=== PATIENT | male | born 1955 | race Caucasian/White ===

== ENCOUNTER → 2018-06-22 | Outpatient (CLI) | payer BC ==
[2018-06-22 12:30] LABS: HEMATOCRIT 42.3 % (42.0-52.0); HEMOGLOBIN 14.9 g/dL (13.5-18.0); RED BLOOD COUNT 4.81 M/mm3 (4.20-5.60); RED CELL DISTRIBUTION WIDTH 14.1 % (11.5-14.5); WHITE BLOOD COUNT 8.2 K/mm3 (4.8-10.8)
== END ==
LOC: LAB 12:10 → EDSTATUS 12:45
PROVIDERS: Internal Medicine Gastroenterology
DX: E83.119 Hemochromatosis, unspecified (principal)

== ENCOUNTER → 2019-02-06 | Outpatient (CLI) | payer BC ==
[2019-02-06 10:21] LABS: HEMATOCRIT 41.9 % (42.0-52.0); HEMOGLOBIN 14.8 g/dL (13.5-18.0)
== END ==
LOC: LAB 10:10
PROVIDERS: Family Medicine
DX: E83.110 Hereditary hemochromatosis (principal)

== ENCOUNTER → 2020-08-20 | Outpatient (CLI) | payer BC ==
[2020-08-20 13:47] LABS: HEMATOCRIT 42.3 % (42.0-52.0)
== END ==
LOC: LAB 13:16
PROVIDERS: Family Medicine
DX: E83.110 Hereditary hemochromatosis (principal)

== ENCOUNTER → 2020-12-24 | Outpatient (CLI) | payer BC ==
[2020-12-24 15:00] LABS: HEMATOCRIT 41.1 % (42.0-52.0); HEMOGLOBIN 14.5 g/dL (13.5-18.0)
== END ==
LOC: LAB 14:48
PROVIDERS: Family Medicine
DX: E83.110 Hereditary hemochromatosis (principal); Z79.899 Other long term (current) drug therapy

== ENCOUNTER → 2021-05-07 | Outpatient (CLI) | payer BC ==
[2021-05-07 12:59] LABS: HEMATOCRIT 43.4 % (42.0-52.0); HEMOGLOBIN 15.2 g/dL (13.5-18.0)
== END ==
LOC: LAB 12:37
PROVIDERS: Family Medicine
DX: E83.110 Hereditary hemochromatosis (principal)

== ENCOUNTER → 2021-07-15 | Outpatient (CLI) | payer BC ==
[2021-07-15 13:39] LABS: HEMATOCRIT 41.4 % (42.0-52.0); HEMOGLOBIN 14.6 g/dL (13.5-18.0)
== END ==
LOC: LAB 13:25
PROVIDERS: Family Medicine
DX: E83.110 Hereditary hemochromatosis (principal)

== ENCOUNTER → 2021-09-15 | Outpatient (CLI) | payer BC ==
[2021-09-15 14:10] LABS: HEMATOCRIT 40.1 % (42.0-52.0); HEMOGLOBIN 13.9 g/dL (13.5-18.0)
== END ==
LOC: LAB 13:55
PROVIDERS: Family Medicine
DX: E83.110 Hereditary hemochromatosis (principal)

== ENCOUNTER → 2022-02-17 | Outpatient (CLI) | payer BC ==
[2022-02-17 13:52] LABS: HEMATOCRIT 41.8 % (42.0-52.0); HEMOGLOBIN 14.9 g/dL (13.5-18.0)
== END ==
LOC: LAB 13:41
PROVIDERS: Family Medicine
DX: E83.110 Hereditary hemochromatosis (principal)

== ENCOUNTER → 2022-03-31 | Outpatient (CLI) | payer BC ==
[2022-03-31 12:48] LABS: HEMATOCRIT 42.8 % (42.0-52.0); HEMOGLOBIN 14.8 g/dL (13.5-18.0)
== END ==
LOC: LAB 12:36
PROVIDERS: Family Medicine
DX: E83.110 Hereditary hemochromatosis (principal)

== ENCOUNTER → 2022-05-20 | Outpatient (CLI) | payer BC ==
[2022-05-20 14:34] LABS: HEMATOCRIT 40.3 % (42.0-52.0); HEMOGLOBIN 14.2 g/dL (13.5-18.0)
== END ==
LOC: LAB 14:18
PROVIDERS: Family Medicine
DX: E83.110 Hereditary hemochromatosis (principal); E83.10 Disorder of iron metabolism, unspecified

== ENCOUNTER → 2022-10-26 | Outpatient (CLI) | payer BC ==
[2022-10-26 13:23] LABS: HEMATOCRIT 43.4 % (42.0-52.0); HEMOGLOBIN 14.8 g/dL (13.5-18.0)
== END ==
LOC: LAB 13:12
PROVIDERS: Family Medicine
DX: E83.110 Hereditary hemochromatosis (principal)